=== PATIENT | female | born 1990 ===

== ENCOUNTER 2022-09-02 12:10 | Emergency (ER) | payer OTHER, SELFPAY ==
--- NOTE | ~2022-09-02 | XR_ITS ---
EXAMINATION: XR FOOT, LEFT CLINICAL INFORMATION: Pain, swelling, ecchymosis. COMPARISON: None available. TECHNIQUE: AP, lateral, and oblique views of the left foot. FINDINGS: There is a small amount of air and edema seen about the inferior lateral aspect of the fifth metatarsophalangeal joint. No adjacent bony abnormalities appreciated. No radiopaque foreign body is seen. XR/XR foot LT min 3V IMPRESSION: Soft tissue density with linear gas which may be related to laceration or ulceration without underlying bony abnormality appreciated about the inferior lateral aspect of the left fifth metatarsophalangeal joint.
--- NOTE | 2022-09-02 12:20 | ED_ITS ---
HPI - Extremity Injury (Lower) General Chief Complaint: Wound/Laceration Stated Complaint: Sore Bottom L Foot Time Seen by Provider: 09/02/22 16:03 Source: patient and family Mode of arrival: ambulatory Limitations: no limitations History of Present Illness HPI Narrative: 32 yo Austrian speaking female with history of DM1 since age 16, CKD, history of chronic left foot wound for the last 2 years who presents to the ER for evaluation of new foul smelling drainage from the foot out that started 2 days ago. She states she initially got the wound from a splinter and was treated in [place]. She states it never fully healed and gets more swollen w/ drainage at times. She denies any new injury to the foot. She feels more pressure in the foot when she walks and states there is a clear, foul smelling odor which is new. She has had chills but no fevers. Her glucose has been all over the place and she has been compliant with her insulin regimen. She has a PCP in [place] but has not been to a Wound Clinic since she arrived to the in March. She has not been on antibiotics recently. complaint: other (acute on chronic left foot wound w/ new foul smelling drai nage) Onset (ago): day(s) (2) Injury: Left: foot Severity: moderate Relieving factors: rest Exacerbating factors: weight bearing Context: other (splinter years ago resulting in chronic nonhealing wound) Associated symptoms: ambulatory and other (drainage, chills) Other symptoms: none Related Data Previous Rx's Medication Instructions Recorded cephalexin 500 mg capsule 500 mg PO Q6H 10 days #40 caps 09/02/22 doxycycline hyclate 100 mg tablet 100 mg PO BID #20 tabs 09/02/22 Allergies Allergy/AdvReac Type Severity Reaction Status Date / Time No Known Allergies Allergy Verified 09/02/22 12:21 Review of Systems Review of Systems: Yes all other systems are reviewed and are negative PMFSH Social History Social History Alcohol intake: never Smoked in Last 30 Days: No Use of substances other than those prescribed or required for medical reasons: No Advance Directives: No Advance Directives Information Provided: No Physical Exam Vital Signs: Vital Signs: Last Vital Signs Temp 98.6 F 09/02/22 19:48 Pulse 119 H 09/02/22 19:48 Resp 18 09/02/22 19:48 BP 154/99 H 09/02/22 19:48 Pulse Ox 100 09/02/22 19:48 O2 Del Method Room Air 09/02/22 19:48 BMI result Body Mass Index 21.3 Appearance: Alert. Oriented X3. No acute distress. HEENT: normal inspection CVS: Tachycardic, regular rhythm, HR 100s, Pulses normal. Respiratory: No respiratory distress. Skin: Skin warm and dry. Normal skin color. Normal skin turgor. No rashes. Extremities: on the bottom of the left foot over the 5th MTP there is a small, mildly tender wound as below. unable to express any purulent fluid Neuro: Oriented X 3. No motor deficit. No sensory deficit. Course Course Course Narrative: RME: 32yo F w/ no PMHx presenting to the ED c/o left foot pain and swelling/ecchymosis x years. Was being tx in [place], now looking for community health director. Admits pain worsening w/foul odor L foot with swelling, ecchymosis and induration XRs ordered Full HPI, ROS and PE to be performed by primary ED provider. Reevaluation(s) Reevaluation #1: patient has critical lactic acid 3.8 without any fever or leukocytosis. she has creatinine 2.1 with baseline CKD. she has a rn intake and states her kidneys are only working at 27% but unknown baseline SCr ordered for 2L IVF, insulin for nonanion gap hyperglycemia, of note patient drinking a large Naresh frozen ice coffee Medications Administered Discontinued Medications Generic Name Dose Route Start Last Admin Trade Name Freq PRN Reason Stop Dose Admin Sodium Chloride 1,000 mls @ 999 mls/hr 09/02/22 17:30 09/02/22 19:23 Ns IVCONT 09/02/22 18:30 Infused .Q1H1M FERNANDO Infusion Ceftriaxone Sodium 1 gm/ 50 mls @ 100 mls/hr 09/02/22 17:26 09/02/22 19:23 Sodium Chloride IV 09/02/22 17:55 Infused ONCE ONE Infusion Sodium Chloride 1,000 mls @ 999 mls/hr 09/02/22 18:30 09/02/22 20:44 Ns IVCONT 09/02/22 19:30 Infused .Q1H1M FERNANDO Infusion Insulin Human Lispro 15 unit 09/02/22 17:32 09/02/22 17:55 Insulin Lispro 100 Unit/Ml 3 Ml Vial SUBCUT 09/02/22 17:33 15 unit ONCE ONE Administration Medical Decision Making Medical Decision Making [facility] Narrative: 32 yo Austrian speaking female with history of DM1 since age 16, CKD, history of chronic left foot wound for the last 2 years who presents to the ER for evaluation of new foul smelling drainage from the foot out that started 2 days ago. HR 110s on arrival but afebrile. XR showing air, likely from open wound and not a necrotizing or gas forming infection. no palpable crepitus or tenderness on exam. no foul smelling drainage apprecaited. labs without leukocytosis. She has anemia, likely related to anemia of chronic disease. She has chronic renal failure with her kidneys working at ?27%.? Her GFR seems to be a basin at 27. She has pseudo hypo natremia and mild hyperkalemia. This was treated with IV fluids and insulin. She had an elevated lactic acid of 3.8. This was treated with IV fluids and improved nicely. IV Rocephin was given, at admission was considered. Discussed with Dr. Tami taveras to treat the patient with oral antibiotics, Keflex and doxy, with wound care follow-up and strict return precautions. Results and plan were discussed with the patient and the importance of close monitoring were discussed. Also importance of euglycemia was encouraged. Patient stable for discharge home with oral antibiotics and wound care follow-up as an outpatient Differential Diagnosis Differential Diagnoses: The differential diagnosis associated with the presentation includes diabetic foot wound, sepsis, osteomyelitis, abscess Admission/Observation Consideration of admission/observation: Escalation of care including admission/observation considered Elevated lactic acid, tachycardic, considered admission. However she had no fever or leukocytosis, wound did not appear severe on exam Lab Data [facility] Lab Attestation statement: I reviewed the patient's lab results. Anemia, elevated BUN and creatinine, non-anion gap hyperglycemia, pseudohyponatremia, mild hyperkalemia 09/02/22 17:03 09/02/22 17:03 Labs: Lab Results 09/02/22 09/02/22 09/02/22 Range/Units 17:03 17:03 17:03 WBC 10.5 (4.8-10.8) X10*3/uL RBC 3.47 L (4.20-5.50) X10*6/uL Hgb 9.9 L (12.0-16.0) g/dl Hct 29.7 L (37.0-47.0) % MCV 85.6 (80.0-98.0) fL MCH 28.5 (27.0-33.0) pg MCHC 33.3 (31.0-35.0) g/dl RDW 13.2 (11.0-16.0) % Plt Count 307 (160-400) X10*3/uL MPV 11.3 (9.4-12.3) fL Immature Gran % (Auto) 0.2 (0.0-0.4) % Neut % (Auto) 79.7 H (45-73) % Lymph % (Auto) 13.8 L (20-40) % [facility] % (Auto) 5.1 (2-11) % Eos % (Auto) 1.1 (0-4) % Baso % (Auto) 0.1 (0-2) % Lymph # (Auto) 1.4 (1.2-4.9) X10*3/uL [facility] # (Auto) 0.5 (0.1-1.2) X10*3/uL Eos # (Auto) 0.1 (0.0-0.4) X10*3/uL Baso # (Auto) 0.0 (0.0-0.2) X10*3/uL Abs Immat Gran (auto) 0.02 (0.00-0.03) X10*3/uL Absolute Neuts (auto) 8.4 H (2.0-8.3) x10*3/uL Absolute Nucleated RBC 0.000 (0.0-0.012) X10*3/uL Nucleated RBC % (auto) 0.0 (0.0-0.2) /100WBC ESR 104 H (0-20) MM/HR Sodium 132 L (135-145) mmol/L Potassium 5.3 H (3.3-5.1) mmol/L Chloride 97 (96-108) mmol/L Carbon Dioxide 23 (22-29) mmol/L Anion Gap 17 (12-20) BUN 37 H (9-16) mg/dL Creatinine 2.10 H (0.5-1.4) mg/dL Estim Creat Clear Calc 30.7 Estimated GFR 27 POC Glucose (60-115) mg/dL Random Glucose 429 H* (60-115) mg/dL Lactic Acid (0.5-2.0) mmol/L Lactic Acid F/U @ 2Hr (0.5-2.0) mmol/L Calcium 10.2 (8.4-10.2) mg/dL Magnesium 1.9 (1.6-2.6) mg/dL Total Bilirubin 0.4 (0.0-1.0) mg/dL Direct Bilirubin 0.1 (0.0-0.5) mg/dL AST 11 (5-31) U/L ALT 9 (0-31) U/L Alkaline Phosphatase 88 (39-117) U/L C-Reactive Protein 6.37 H (< or = 0.50) mg/dL Total Protein 8.3 H (6.5-8.0) g/dL Albumin 3.8 (3.5-5.0) g/dL 09/02/22 09/02/22 09/02/22 Range/Units 17:04 19:28 19:55 WBC (4.8-10.8) X10*3/uL RBC (4.20-5.50) X10*6/uL Hgb (12.0-16.0) g/dl Hct (37.0-47.0) % MCV (80.0-98.0) fL MCH (27.0-33.0) pg MCHC (31.0-35.0) g/dl RDW (11.0-16.0) % Plt Count (160-400) X10*3/uL MPV (9.4-12.3) fL Immature Gran % (Auto) (0.0-0.4) % Neut % (Auto) (45-73) % Lymph % (Auto) (20-40) % [facility] % (Auto) (2-11) % Eos % (Auto) (0-4) % Baso % (Auto) (0-2) % Lymph # (Auto) (1.2-4.9) X10*3/uL [facility] # (Auto) (0.1-1.2) X10*3/uL Eos # (Auto) (0.0-0.4) X10*3/uL Baso # (Auto) (0.0-0.2) X10*3/uL Abs Immat Gran (auto) (0.00-0.03) X10*3/uL Absolute Neuts (auto) (2.0-8.3) x10*3/uL Absolute Nucleated RBC (0.0-0.012) X10*3/uL Nucleated RBC % (auto) (0.0-0.2) /100WBC ESR (0-20) MM/HR Sodium (135-145) mmol/L Potassium (3.3-5.1) mmol/L Chloride (96-108) mmol/L Carbon Dioxide (22-29) mmol/L Anion Gap (12-20) BUN (9-16) mg/dL Creatinine (0.5-1.4) mg/dL Estim Creat Clear Calc Estimated GFR POC Glucose 197 H (60-115) mg/dL Random Glucose (60-115) mg/dL Lactic Acid 3.8 H* (0.5-2.0) mmol/L Lactic Acid F/U @ 2Hr 1.9 (0.5-2.0) mmol/L Calcium (8.4-10.2) mg/dL Magnesium (1.6-2.6) mg/dL Total Bilirubin (0.0-1.0) mg/dL Direct Bilirubin (0.0-0.5) mg/dL AST (5-31) U/L ALT (0-31) U/L Alkaline Phosphatase (39-117) U/L C-Reactive Protein (< or = 0.50) mg/dL Total Protein (6.5-8.0) g/dL Albumin (3.5-5.0) g/dL Independent Interpretation I performed an independent interpretation of an: Plain X-Ray Interpretation: X-ray reviewed, linear gas appreciated but no other foci of air, no bony erosion, agree with radiologist's read Radiology Impression Discussion of test interpretation with radiology: I have reviewed the radiologist's reading. Radiologist Impression: XR/XR foot LT min 3V IMPRESSION: Soft tissue density with linear gas which may be related to laceration or ulceration without underlying bony abnormality appreciated about the inferior lateral aspect of the left fifth metatarsophalangeal joint. Independent Historian Clinical information obtained from an independent historian. History obtained from or confirmed by: Friend Prescription Management I considered prescription management with: Antibiotic Chronic Conditions Patient?s care impacted by: Diabetes and Other (CKD) Social Determinants Patient?s care significantly limited by Social Determinants of Health including: Other Social Determinant of Health Critical Care Time Critical Care Time Critical Care Time: Yes Total Critical Care Time: 35 Attestation: I have personally provided critical care time exclusive of time spent on separately billable procedures. Time includes review of lab data, radiology results, discussion with attending physician, and monitoring for potential decompensation. Intervention performed as documented. Discharge Plan Discharge Clinical Impression: Wound, open, foot, CKD (chronic kidney disease), Type 1 diabetes, Anemia Patient Disposition: Home, Self-Care Instructions: Wound Infection (DC) Additional Instructions: It is very important that your blood glucose is under tight control while you are being treated for the wound infection Take the prescribed antibiotics as directed, do not miss any doses and complete the entire course FOLLOW UP WITH THE WOUND CLINIC - call for an appointment. If you develop new or worsening symptoms call 911 or come back to the ER for further evaluation. Es muy importante que nguyen nivel de glucosa en la mer est? bajo estricto control mientras recibe tratamiento para la infecci?n de la herida. [place] los antibi?ticos prescritos seg?n las indicaciones, no omita ninguna dosis y complete todo el ciclo. SEGUIMIENTO CON LA CL?LINA DE HERIDAS: llame para programar ramiro marianne. Si desarrolla s?ntomas nuevos o que empeoran, llame al 911 o regrese a la shelton de emergencias para ramiro evaluaci?n adicional. Prescriptions: New doxycycline hyclate 100 mg tablet 100 mg PO BID Qty: 20 0RF cephalexin 500 mg capsule 500 mg PO Q6H 10 Days Qty: 40 0RF Ref[place]: [facility] [place] [facility] [place]] (acute on chronic left foot wound, DM1) Stand Alone Forms: Work/School Release Print Language: Austrian
[2022-09-02 12:22] VITALS: BP 119/79; PULSE 117; RESP 16; TEMP 36.7; O2SAT 99; BMI 21.3
[2022-09-02 15:43] VITALS: BP 119/85; PULSE 106; RESP 19; O2SAT 100
[2022-09-02 16:00] VITALS: BP 149/103; PULSE 118; RESP 16; TEMP 37.1; O2SAT 100
[2022-09-02 17:10] LABS: MANUAL DIFF FLAG NO
[2022-09-02 17:12] LABS: Basophils Percent Auto 0.1 % (0-2); Eosinophils Absolute Auto 0.1 X10*3/uL (0.0-0.4); Eosinophils Percent Auto 1.1 % (0-4); Hematocrit 29.7 % (37.0-47.0); Hemoglobin 9.9 g/dl (12.0-16.0); Imm Gran Abs Auto 0.02 X10*3/uL (0.00-0.03); Imm Gran Pct Auto 0.2 % (0.0-0.4); Lymphocytes Absolute Auto 1.4 X10*3/uL (1.2-4.9); Lymphocytes Percent Auto 13.8 % (20-40); Mean Corpuscular HGB Conc 33.3 g/dl (31.0-35.0); Mean Corpuscular Hemoglobin 28.5 pg (27.0-33.0); Mean Corpuscular Volume 85.6 fL (80.0-98.0); Mean Platelet Volume 11.3 fL (9.4-12.3); Monocytes Absolute Auto 0.5 X10*3/uL (0.1-1.2); Monocytes Percent Auto 5.1 % (2-11); Neutrophils Absolute Auto 8.4 x10*3/uL (2.0-8.3); Neutrophils Percent Auto 79.7 % (45-73); Platelet Count 307 X10*3/uL (160-400); Red Blood Count 3.47 X10*6/uL (4.20-5.50); Red Cell Distribution Width 13.2 % (11.0-16.0); White Blood Count 10.5 X10*3/uL (4.8-10.8)
[2022-09-02 17:26] LABS: Lactic Acid 3.8 mmol/L (0.5-2.0)
[2022-09-02 17:33] LABS: Alanine Aminotransferase 9 U/L (0-31); Albumin Level 3.8 g/dL (3.5-5.0); Alkaline Phosphatase 88 U/L (39-117); Anion Gap 17 (12-20); Aspartate Amino Transferase 11 U/L (5-31); Bilirubin Direct 0.1 mg/dL (0.0-0.5); Bilirubin Total 0.4 mg/dL (0.0-1.0); Blood Urea Nitrogen 37 mg/dL (9-16); C Reactive Protein 6.37 mg/dL (< or = 0.50); Calcium 10.2 mg/dL (8.4-10.2); Carbon Dioxide 23 mmol/L (22-29); Chloride 97 mmol/L (96-108); Creatinine Clr Calc Pharmacy 30.7; Estimated Glomerular Filt Rate 27; Glucose Random 429 mg/dL (60-115); Magnesium 1.9 mg/dL (1.6-2.6); Potassium 5.3 mmol/L (3.3-5.1); Sodium 132 mmol/L (135-145); Total Protein 8.3 g/dL (6.5-8.0)
[2022-09-02 17:50] LABS: Erythrocyte Sedimentation Rate 104 MM/HR (0-20)
[2022-09-02] MEDS: 0.9 % Sodium Chloride 1,000 ML 999 ML IVCONT ×2 (17:55→19:00)
[2022-09-02] MEDS: Insulin Lispro 100 UNIT/ML 3 ML VIAL 15 UNIT SUBCUT (17:55)
[2022-09-02] MEDS: cefTRIAXone sodium 1 GM in 0.9 % Sodium Chloride 50 ML IV (17:55)
[2022-09-02 18:00] VITALS: BP 134/93; PULSE 116; RESP 18; TEMP 36.9; O2SAT 100
--- NOTE | 2022-09-02 18:44 | PC.NURSE ---
Patient with small area to the bottom of her left foot, from a previous splinter injury. Area around the insertion site open with some slough noted. Patient is alert and oriented, able to make needs known.
[2022-09-02 19:09] LABS: Reflex Lactate? Lactic Acid Added
--- NOTE | 2022-09-02 19:19 | PC.NURSE ---
Pt ca&ox3, no signs of distress. Pt with family member at bedside. Pt sitting up in bed talking with family. NS started. Will continue to monitor.
--- NOTE | 2022-09-02 19:30 | PC.NURSE ---
POC done by this RN 197.
--- NOTE | 2022-09-02 19:31 | PC.NURSE ---
delay in drawing repeat lactic acid as fluids not yet complete. pt only received 500 cc normal saline bolus as care was assumed at 1900. second liter hung and placed on an iv pole for quicker administration. iv line patent and fluids infusing.. will repeat lactic as soon as fluids finish. will CTM.
[2022-09-02 19:32] LABS: Glucose, Whole Blood 197 mg/dL (60-115)
[2022-09-02 19:48] VITALS: BP 154/99; PULSE 119; RESP 18; TEMP 37; O2SAT 100
--- NOTE | 2022-09-02 20:01 | MHC.EDTECH ---
Brought patient two warm blankets.
[2022-09-02 20:08] LABS: ~Lactic Acid-LAB USE ONLY 1.9 mmol/L (0.5-2.0)
== END 2022-09-02 21:01 | disposition home or self-care (01) ==
PROVIDERS: Physician Assistant; Emergency Provider Emergency Medicine Emergency Medical Services
DX: S91.302A Unspecified open wound, left foot, initial encounter (principal); W45.8XXA Other foreign body or object entering through skin, initial encounter; E10.22 Type 1 diabetes mellitus with diabetic chronic kidney disease; N18.9 Chronic kidney disease, unspecified; D63.1 Anemia in chronic kidney disease; Y93.9 Activity, unspecified; Y92.9 Unspecified place or not applicable; Y99.9 Unspecified external cause status
CPT/HCPCS: 36415; 73630; 80048; 80076; 82947; 83605; 83735; 85025; 85652; 86140; 87040; 96361; 96374; 99284; J0696